=== PATIENT | female | born 1945 | race Caucasian/White ===

== ENCOUNTER 2016-05-30 10:20 | Emergency (ER) | payer OTHER ==
[2016-05-30] MEDS ORDERED: AZITHROMYCIN 250 MG TAB PO ONE (12:27)
--- NOTE | 2016-05-30 12:34 | DX ---
PA and Lateral Chest Clinical Indications: Cough, dyspnea Comparison: January 28, 2010 Findings: Inspiratory phase is decreased since 2010. Kelli hilar bronchial wall thickening is chronic or recurrent and suggest underlying airways disease. Patchy density in the left lower lobe could be r elated to the poor inspiration or represent infiltrate. The costophrenic gutters remain sharp. Heart size and pulmonary vascularity remains normal. A thoracic dextro scoliosis is unchanged. Impression: Airways disease. Potential left lower lobe infiltrate. A repeat chest x-ray with improved inspiration might be helpful, as clinically directed.
[2016-05-30 12:55] LABS: % IMMATURE GRANULYOCYTES 0.5 % (0.0-1.1); ABSOLUTE IMMATURE GRANULOCYTES 0.04 10^3/uL (0.00-0.10); ADD DIFF? NO; ADD MORPH? NO; ADD SCAN? NO; ATYPICAL LYMPHOCYTE FLAG 20 (0-99); FRAGMENT RBC FLAG 0 (0-99); HEMATOCRIT 44.4 % (38.0-47.0); HEMOGLOBIN 14.3 g/dL (12.6-16.3); LEFT SHIFT FLG 0 (0-99); LIPEMIA HEMOLYSIS FLAG 80 (0-99); MEAN CELL HEMOGLOBIN CONCENTR. 32.2 g/dL (32.4-36.7); MEAN CELL VOLUME 93.1 fL (81.5-99.8); PLATELET CLUMPS FLAG 0 (0-99); PLATELET COUNT 289 10^3/uL (150-400); RED BLOOD CELL COUNT 4.77 10^6/uL (4.18-5.33); RED CELL DISTRIBUTION WIDTH 13.7 % (11.5-15.2)
[2016-05-30 13:11] LABS: ANION GAP 13 mEq/L (8-16); CALCIUM 9.4 mg/dL (8.5-10.4); CARBON DIOXIDE 26 mEq/l (22-31); CHLORIDE 101 mEq/L (97-110); CREATININE 0.7 mg/dL (0.6-1.0); GLOMERULAR FILTRATION RATE > 60; GLUCOSE 114 mg/dL (70-100); SODIUM 140 mEq/L (134-144)
--- NOTE | 2016-05-30 13:45 | UCPHY ---
H & P Patient Type: New Chief Complaint Nursing Narrative: cough and congestion for 5 days, denies fever , shortness of breath Time Seen by Provider: 05/30/16 12:19 HPI/ROS: This patient reports 5 day history of coughing. She explains that she initially had a dry cough but is now occasionally productive of sputum. She has mild throat pain that she attributes to the harsh cough. She has pain when she coughs but no pain with deep breath. She has subjective fevers associated with this. She also complains of myalgias. She has partial relief from over- the-counter antipyretics and analgesics with no other exacerbating or alleviating factors. She reports compliance with her Xarelto ROS: Constitutional: No significant fatigue. HEENT: No facial pressure. No ear pain. Pulmonary: No respiratory distress. No pleuritic pain Cardiovascular: No heart palpitations or lightheadedness. No lower extremity swelling or calf pain. GI: No nausea or vomiting : No urinary symptoms Endocrine: No complaint Integumentary: No complaints Psychiatric: Has depression longstanding undergoing treatment Musculoskeletal: No complaints Source: Patient Exam Limitations: No limitations - Medical/Surgical History Other PMH: PEs in dec 2015, hip replacement - Family History Significant Family History: No pertinent family hx - Social History Smoking Status: Never smoked Alcohol Use: None Drug Use: None - Physical Exam Exam: General Appearance: Alert, no distress. Eyes: Pupils equal and round no pallor or injection. ENT, Mouth: Mucous membranes moist. Respiratory: Mild rales bilateral bases. Cardiovascular: Regular rate and rhythm. No murmur gallop rub. No JVD. No peripheral edema. Gastrointestinal: Abdomen is soft and nontender, no masses, bowel sounds normal. Neurological: Alert with no focal deficits Skin: Warm and dry, no rashes. Musculoskeletal: Neck is supple nontender. Extremities are symmetrical, full range of motion. No calf swelling or tenderness Psychiatric: Mood and affect are normal DIFFERENTIAL DIAGNOSIS: After history and physical exam differential diagnosis was considered for pneumonia, bronchitis, CHF Constitutional: Initial Vital Signs Temperature (C) 37.0 C 05/30/16 11:43 Heart Rate 78 05/30/16 11:43 Respiratory Rate 18 05/30/16 11:43 Blood Pressure 120/79 05/30/16 11:43 O2 Sat (%) 95 05/30/16 11:43 O2 Delivery Mode Room Air Allergies/Adverse Reactions: No Allergies [NKDA] Allergy (Verified 05/30/16 11:40) Home Medications: Medication Instructions Recorded Azithromycin [Zithromax] 250 mg PO DAILY #4 tab 05/30/16 Prozac 20 MG (*) 05/30/16 Ranitidine HCl 05/30/16 Stiolto Respimat Inhal Mora 05/30/16 Xarelto 05/30/16 Medical Decision Making - Diagnostics Imaging: Chest x-ray: Mild left lower lobe infiltrate by my interpretation ED Course/Re-evaluation: IV, blood cultures, IV Rocephin, p. o. Zithromax I counseled the patient regarding community-acquired pneumonia. Despite her pneumonia she does not have SIRS criteria. Her lactate level is normal, CBC is normal that she appears well clinically. I think that she will do well as an outpatient. - Data Points Laboratory Results: Laboratory Results 05/30/16 12:40 05/30/16 12:40 Medications Given: Discontinued Medications Azithromycin (Zithromax) 500 mg PO EDNOW ONE PRN Reason: Protocol Stop: 05/30/16 12:28 Last Admin: 05/30/16 13:12 Dose: 500 mg Ceftriaxone Sodium 1 gm/ (Sodium Chloride) 100 mls @ 200 mls/hr IV EDNOW ONE PRN Reason: Protocol Stop: 05/30/16 12:55 Last Admin: 05/30/16 13:10 Dose: 100 mls Departure - Departure Disposition: Home, Routine, Self-Care Clinical Impression: Community acquired pneumonia Condition: Good Instructions: Community Acquired Pneumonia (ED) Additional Instructions: Diagnosis: Community-acquired pneumonia Plan: Humidifier Zithromax antibiotic Follow 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 Referrals: CRIS DEL VALLE [Primary Care Provider] - As per Instructions Prescriptions: Azithromycin [Zithromax] 250 mg PO DAILY #4 tab - PQRS PQRS Measurement: 134: Depression screening and followup, PRIME MD-PHQ2 (12 years and older) Over the last 2 weeks, how often have you been bothered by any of the following problems? 1. Feeling down, depressed, or hopeless? 2. Little interest or pleasure in doing things? Patient answered yes to at least 1, referred to PCP for further evaluation. 130: Documentation of medications. Reviewed all patient medications, doses, route and frequency. 226: Do you smoke? [No.] 47: 65 and older: Advanced care planning. Patient has advanced directive. 51: 18 years old and older with diagnosis of COPD, spirometry performance. NA 52: 18 years old and older with COPD and symptoms of COPD or FEV1<60% predicted prescribed a B Agonist. NA
[2016-05-30 14:24] VITALS: BP 113/71; PULSE 68; RESP 16; TEMP 98.2; O2SAT 92
== END 2016-05-30 14:12 | disposition home or self-care (01) ==
LOC: CED 10:20
DX: J18.9 Pneumonia, unspecified organism (principal)
CPT/HCPCS: 71020; 96365; G0463; J0696; 80048-PO; 83605-PO; 83880-PO; 85025-PO; 87400-PO; 99203-PO